=== PATIENT | male | born 1985 | race Caucasian/White ===

== ENCOUNTER 2025-06-28 00:18 | Emergency (ER) | payer OTHER, SELFPAY ==
--- OUTSIDE RECORDS SUMMARY | 2025-06-28 00:34 | XMS_ITS | Clinical Summary ---
Author Organization [facility] Address [address] [place] [address] Care Team Providers Care Cloth Shearing Supervisor Name Role Phone Chaya Mojica SHEATHER Primary Care Prov ider Allergies Active Allergy Reactions Criticality Noted Date Comments Adhesive Tape-Silicones Hives Medium 11/24/2017 Medications No known medications Active Problems No known active problems Immunizations Immunization Administration Dates Next Due DTP 05/18/1990, 0,05/31/1985,1984,1984 Hep B, unspecified 06/14/1999,01/30/1999, 999 Hib (PRP-T) (ACTHIB, HIBERIX) 09/22/1986 MMR (M-M-R II) 04/17/1997,07/11/1987 OPV 05/18/1990, 0,05/31/1985,1984,1984 Td (adult) (TDVAX) 12/18/1998 Tdap (BOOSTRIX, ADACEL) 06/23/2022 influenza, injectable, quadr ivalent (AFLURIA/FLUZONE MDV) 07/31/2015 Family History Medical History Relation Name Comments No Known Problems Daughter 1 No Known Problems Daughter 2 No Known Problems Daughter 3 No Known Problems Father No Known Problems Mother No Known Problems Sister 1 No Known Problems Sister 2 No Known Problems Son 1 No Known Problems Son 2 No Known Problems Son 3 Relation Name Status Comments Daughter 1 Alive Daughter 2 Alive Daughter 3 Alive Father Alive Mother Alive Sister 1 Alive Sister 2 Alive Son 1 Alive Son 2 Alive Son 3 Alive Social History Tobacco Use Types Packs/Day Years Used Date Smoking Tobacco: Former Smokeless Tobacco: Former Chew Alcohol Use Standard Drinks/Week Comments Not Currently 0 (1 standard drink = 0.6 oz pur e alcohol) PHQ-2 Answer Date Recorded PHQ-2 Score 0 11/11/2023 Sex and Gender Information Value Date Recorded Sex Assigned at Not on file Legal Sex Male 10:52 AM CDT Gender Identity Not on file Sexual Orientation Not on file Last Filed Vital Signs Vital Sign Reading Time Taken Comments Blood Pressure 144/97 11/11/2023 3:14 PM BRUSHER OPERATOR Pulse 76 11/11/2023 3:14 PM BRUSHER OPERATOR Temperature 36.5 C (97.7 F) 11/11/2023 3:14 PM BRUSHER OPERATOR Respiratory Rate 18 04/03/2022 9:07 AM CDT Oxygen Saturation 97% 11/11/2023 3:14 PM BRUSHER OPERATOR Inhaled Oxygen Concentration - - Weight 111 kg (245 lb) 11/11/2023 3:14 PM BRUSHER OPERATOR Height 188 cm (6' 2 ) 11/11/2023 3:14 PM BRUSHER OPERATOR Body Mass Index 31.46 11/11/2023 3:14 PM BRUSHER OPERATOR Plan of Treatment Health Maintenance Due Date Last Done Comments Annual Wellness 1984 Varicella Vaccines (1 of 2 - 13+ 2-dose series) 1997 HPV Vaccines (1 - 3-dose SCDM series) 2011 Influenza Vaccination (#1) 2025 07/31/2015 Td, Tdap Vaccines Adult 06/23/2032 06/23/2022, 12/18 HIB Vaccines Completed 09/22/1986 IPV Vaccines Completed 05/18/1990, 11/06, 05/31/1985, Additional history exists MMR Vaccines Completed 04/17/1997, 07/11/1987 Hepatitis B Vaccines Completed 06/14/1999, 01/30/1999, 12/18/1998 Hepatitis A Vaccines Aged Out No long er eligible based on patient's age to complete this topic Meningococcal Vaccines Aged Out No lo nger eligible based on patient's age to complete this topic Pneumococcal Vaccine: Pediatrics (0 to 5 Years) and At-Risk Patients (6 to 49 Years) Aged Out No longer eligible based on patient's age to complete this topic RSV Mab Nirsevimab (Beyfortus) <20 months Aged Out No longer eligibl e based on patient's age to complete this topic Rotavirus Vaccines Aged Out No longer eligible based on patient's age to complete this topic [place] [address] [employer] Care Teams Cloth Shearing Supervisor Relationship Specialty Start Date End Date Chaya Mojica, SHEATHER [address] [place] [id number] PCP - General Family Medicine 12/17/21
--- OUTSIDE RECORDS SUMMARY | 2025-06-28 00:34 | XMS_ITS | Clinical Summary ---
Author Organization [facility] Address [address] [place] [address] Care Team Providers Care Chain Mender Name Role Phone Unavailable Primary Care Provider Unavailabl e Source Comments [facility],non-owned Affiliates and Associated Physician Practices is amultiple site organization consisting of ambulatory clinics and hospital sitesin [place], [place], [place] and [place]. This disclosure is being madepursuant to the Care Everywhere program and may not contain all information available regarding this patient. 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 Gender Identity Not on file Sexual Orientation Not on file Last Filed Vital Signs Vital Sign Reading Time Taken Comments Blood Pressure 135/88 01/17/2016 6:37 AM CDT Pulse 72 01/17/2016 6:37 AM CDT Temperature 36.7 C (98.1 F) 01/17/2016 6:37 AM CDT Respiratory Rate 18 01/17/2016 6:37 AM CDT Oxygen Saturation 100% 01/17/2016 6:37 AM CDT Inhaled Oxygen Concentration - - Weight 104.3 kg (230 lb) 01/17/2016 6:37 AM CDT Height 188 cm (6' 2 ) 01/17/2016 6:37 AM CDT Body Mass Index 29.53 01/17/2016 6:37 AM CDT Plan of Treatment Health Maintenance Due Date Last Done Comments LIPID TESTING 1984 HIV SCREENING 1999 HEPATITIS C SCREENING 10/23/2002 DTAP/TDAP/TD VACCINES (1 - Tdap) 2003 HEPATITIS B VACCINE (1 of 3 - 19+ 3-dose series) 2003 HPV VACCINE (1 - 3-dose SCDM series) 2011 DEPRESSION SCREENING 10/05/2024 COVID-19 VACCINE (2023-2 5 season) 2025 INFLUENZA VACCINE (#1) 2025 ZOSTER VACCINE (1 of 2) 2034 HIB VACCINE Aged Out No longer eligi ble based on patient's age to complete this topic MENINGOCOCCAL (Group B) VACC INE SHARED DECISION-MAKING Aged Out No longer eligibl e based on patient's age to complete this topic MENINGOCOCCAL GROUPS A/C/Y/W VACCINE Aged Out No longer eligible b ased on patient's age to complete this topic PNEUMOCOCCAL VACCINE Aged Out No long er eligible based on patient's age to complete this topic
--- OUTSIDE RECORDS SUMMARY | 2025-06-28 00:34 | XMS_ITS | Clinical Summary ---
Author Organization [place] [id number] Address [address] [place] [address] Care Team Providers Care Analytics Specialist Name Role Phone Chaya Mojica NP Primary Care Prov ider Allergies Active Allergy Reactions Criticality Noted Date Comments Adhesive Tape-Silicones Hives Medium 11/24/2017 Medications multivitamin (MEN'S MULTI-VITAMIN) tablet tablet take 1 tablet by oral route every day 0 0 06/03/20 16 Active Additional Information Patient not taking.Reported on 02/23/[address] (NexIUM) 20 mg capsule Take 20 mg by mouth daily before breakfast. Active amoxicillin/potass ium clav (AUGMENTIN ORAL) Take by mouth. Active HYDROcodone-acetam inophen (NORCO) 5-325 mg per tabletIndications: Pain Take 1 tablet by mouth every 6 (six) hours as needed. Active cyclobenzaprine (FLEXERIL) 10 mg tabletIndications: Muscle Spasm Take 1 tablet (10 mg total) by mouth every 8 (eight) hours as needed for muscle spasms. 30 tablet 03/12/20 18 Active Additional Information Patient not taking.Reported on 02/23/2022 ibuprofen (ADVIL,MOTRIN) 800 mg tabletIndications: Anti-inflammatory, Pain Take 1 tablet (800 mg total) by mouth every 8 (eight) hours as needed for pain. 30 tablet 03/12/20 18 Active Additional Information Patient not taking.Reported on 02/23/2022 methylphenidate HCl (RITALIN) 10 mg tablet 05/03/20 21 Active ALPRAZolam (XANAX) 0.5 mg tablet 05/07/20 21 Active nicotine polacrilex (NICORETTE) 2 mg gum 05/03/20 21 Active diazePAM (VALIUM) 5 mg tablet Take 3 tablets (15mg) 1 hour prior to procedure 3 tablet 05/15/20 21 Active Additional Information Patient not taking.Reported on 02/23/2022 traMADoL (ULTRAM) 50 mg tabletIndications: Vasectomy status Take 1 tablet (50 mg total) by mouth every 6 (six) hours 10 tablet 06/07/20 21 Active Additional Information Patient not taking.Reported on 02/23/2022 omeprazole (PriLOSEC) 40 mg capsule Take 40 mg by mouth daily 12/18/19 22 Active nebivoloL (BYSTOLIC) 5 mg tabletIndications: Hypertension, essential Take 1 tablet (5 mg total) by mouth daily 30 tablet 02/24/20 22 Active tamsulosin (FLOMAX) 0.4 mg extended release capsule Take 1 capsule (0.4 mg total) by mouth daily for 10 days 10 capsule 03/27/20 22 Active ondansetron ODT (ZOFRAN-ODT) 4 mg disintegrating tablet Take 1 tablet (4 mg total) by mouth every 8 (eight) hours as needed for nausea or vomiting 20 tablet 03/27/20 22 Active Active Problems Problem Noted Date Diagnosed Date Gastroesophageal reflux disease 11/25/2017 Overview (11/25/2017): Added automatically from request for surgery [id number] Dysphagia 11/25/2017 Overview (11/25/2017): Added automatically from request for surgery [id number] Urinary hesitancy 06/03/2016 Overview (01/07/2017): Urinary hesitancy Benign neoplasm of skin of trunk 06/03/2016 Overview (01/07/2017): Lipoma of torso Male erectile disorder 06/03/2016 Overview (01/08/2017): Other male erectile dysfunction Increased frequency of urination 06/03/2016 Overview (01/08/2017): Urinary frequency Weight decreased 06/03/2016 Overview (01/08/2017): Weight loss Immunizations Immunization Administration Dates Next Due DTP 05/18/1990, 0,05/31/1985,03/07,1984 Hep B, Unspecified 06/14/1999,01/30/1999, 999 Hib (PRP-T) 09/22/1986 Influenza, Quadrivalent, Spl it, Intramuscular 07/31/2015 MMR 04/17/1997,07/11/1987 OPV 05/18/1990, 0,05/31/1985,03/07,1984 Td, adsorbed 12/18/1998 Surgical History Surgery Date Site/Laterality Comments WRIST SURGERY 10/05/1991 - 10/04/1992 Left LIPOMA RESECTION N/A abdominal ESOPHAGOGASTRODUODENOSCOPY 11/26/2017 Medical History Medical History Date Comments GERD (gastroesophageal reflux disease) Depression Panic attack Family History Medical History Relation Name Comments Heart disease Paternal Grandfather Heart disease; Relation Name Status Comments Paternal Grandfather Social History Tobacco Use Types Packs/Day Years Used Date Smoking Tobacco: Former Cigarettes Q uit: 11/25/2015 Smokeless Tobacco: Former Quit: 11/25/2012 Tobacco Cessation:Counseling Given: No Alcohol Use Standard Drinks/Week Comments No 0 (1 standard drink = 0.6 oz pur e alcohol) Personal Safety Answer Date Recorded Have you ever been in or are you currently in a harmful physical or emotional relationship or is someone making you feel afraid or unsafe? Denies 05/02/2024 Sex and Gender Information Value Date Recorded Sex Assigned at Not on file Legal Sex Male 11:04 PM CLOTH INSPECTOR Gender Identity Not on file Sexual Orientation Not on file Obstetrics History Last Filed Vital Signs Vital Sign Reading Time Taken Comments Blood Pressure 142/94 05/02/2024 10:50 PM CDT Pulse 80 05/02/2024 10:50 PM CDT Temperature 37.1 C (98.7 F) 05/02/2024 10:50 PM CDT Respiratory Rate 18 05/02/2024 10:50 PM CDT Oxygen Saturation 100% 05/02/2024 10:50 PM CDT Inhaled Oxygen Concentration - - Weight 103.4 kg (228 lb) 05/02/2024 10:50 PM CDT Height 188 cm (6' 2 ) 02/23/2022 9:05 AM CDT Body Mass Index 29.27 02/23/2022 9:05 AM CDT Plan of Treatment Health Maintenance Due Date Last Done Comments Depression Screening 1984 Hepatitis C Screening 1984 Varicella Vaccines (1 of 2 - 13+ 2-dose series) 1997 Regular Well Visit/Exam 18-64 2002 HPV Vaccines (1 - 3-dose SCDM series) 2011 Influenza Vaccine (#1) 2025 07/31/2015 DTaP/Tdap/Td Vaccine (6 - Td or Tdap) 06/23/2032 06/23/2022, 12/18/1998, 05/18/1990, Additional history exists Hepatitis B Screening Completed 06/14/1999 , 01/30/1999, 12/18/1998 Pneumococcal vaccine <65 Aged Out No longer eligible based on patient's age to complete this topic Insurance [place] [id number] [facility] apprupt [facility] CIG [facility] [place] [id number] [facility] [place] [id number] [employer] Care Teams Analytics Specialist Relationship Specialty Start Date End Date Chaya Mojica NP [address] [place] [address] [place] [id number] PCP - General 03/27/22
[2025-06-28 00:38] VITALS: BP 153/118; PULSE 80; RESP 18; TEMP 36.4; O2SAT 96; BMI 31.4
--- NOTE | 2025-06-28 00:41 | W.ED.DENTAL ---
HPI - Dental/Oral General: Chief complaint: Dental/Oral Stated complaint: LT side toothache Time Seen by Provider: 06/28/25 00:21 Source: patient Mode of arrival: ambulatory Limitations: no limitations History of Present Illness: 39-year-old male states he has been having left lower molar pain over the last 3 days. States the pain has been sharp in nature rates it a 6 out of 10 states has not been able to get into a dentist. He denies any trismus denies any difficulty swallowing Associated symptoms: Denies fever(s) Related Data Previous Rx's ?Medication ?Instructions ?Recorded cephalexin 500 mg capsule 500 mg PO TID 7 days #21 caps 06/28/25 naproxen 500 mg tablet (Naprosyn) 500 mg PO BID PRN pain #20 tabs 06/28/25 Review of Systems Const: Denies: fever(s), chills, body aches or change in appetite ENMT: Reports: dental pain; Denies: throat pain GI: Denies: nausea or vomiting Musc: Denies: neck pain Physical Exam Const: COMMON NORMALS: no acute distress, patient oriented x3 and healthy appearing HENMT: COMMON NORMALS: normocephalic and atraumatic HEAD & SCALP: normocephalic and atraumatic OTHER: Poor dentition tenderness on left lower molar no abscess or trismus Neck/C-Spine: COMMON NORMALS: full ROM and supple Chest: COMMONS NORMALS: normal inspection of the chest Resp: COMMON NORMALS: normal respiratory effort Cardio: COMMON NORMALS: regular rate RATE: regular rate Extremity: COMMON NORMALS: normal to inspection and full ROM Neuro: COMMON NORMALS: patient oriented x3, moves all extremities and no focal motor deficits Psych: COMMON NORMALS: mental status grossly normal, Normal thought process present and cooperative THOUGHT PROCESS: Normal thought process present Skin: COMMON NORMALS: no rashes or lesions noted and no wounds GENERAL SKIN EXAM: no rashes or lesions noted Course Vital Signs: Vital signs: Vital Signs Temperature 97.6 F 06/28/25 00:38 Pulse Rate 80 06/28/25 00:38 Respiratory Rate 18 06/28/25 00:38 Blood Pressure 153/118 06/28/25 00:38 Pulse Oximetry 96 06/28/25 00:38 Oxygen Delivery Me thod Room Air 06/28/25 00:38 MDM - Dental/Oral Medical Decision Making Patient presents for dental pain from a dental carry he is well-appearing he has no trismus no abscess no signs of John angina. Did give him a [place] here will prescribe Keflex and Naprosyn he is to follow-up with dentist he understands agrees to plan No radiology studies performed this visit Discharge Plan Discharge Patient Disposition: Home Clinical Impression: Pain, dental Condition: Stable Prescriptions: New cephalexin 500 mg capsule 500 mg PO TID 7 Days Qty: 21 0RF naproxen [Naprosyn] 500 mg tablet 500 mg PO BID PRN (Reason: pain) Qty: 20 0RF Discharge Orders: Discharge ED (Routine); Ordered 06/28/25 Ordered By: Keiko Shell Discharge Diet: Advance as tolerated Discharge Activity: Resume usual activity Patient Instructions: Toothache (ED) Print Language: Uzbek Coding Level of Care Code ED Pv Design And Installation Technician for Nirav Chan
[2025-06-28] MEDS: HYDROcodone-acetaminophen 5-325 mg Tablet 1 TAB PO (00:44)
== END 2025-06-28 00:50 | disposition home or self-care (01) ==
PROVIDERS: Emergency Provider Emergency Medicine
DX: K08.89 Other specified disorders of teeth and supporting structures (principal)
CPT/HCPCS: 99283; J9999